=== PATIENT | male | born 1945 | race Caucasian/White ===

== ENCOUNTER 2017-10-15 12:55 | Inpatient (IN) | payer MEDICARE, OTHER ==
[~2017-10-15 12:55] MED LIST: ACETAMINOPHEN 1,000 MG/100 ML BTL IV ONE; BUPIVACAINE 0.75% W/EPI MPF 30ML VIAL IVP ONE; BUPIVACAINE LIPOSOME 266MG/20ML VIAL IV ONE; CEFAZOLIN 2 Gram 2 GM/50 ML BAG IVPB ONE; CELECOXIB 100 MG CAPSULE PO ONE; FAMOTIDINE 20MG TABLET PO ONE; MECLIZINE 25 MG TABLET PO ONE; METOCLOPRAMIDE 10 MG TABLET PO ONE; TRANEXAMIC ACID 1,000 MG/10 ML ML IV ONE; VANCOMYCIN HCL 1 GM VIAL IVPB ONE; VANCOMYCIN HCL 1,000 MG in DEXTROSE 5 % IN WATER 250 ML IVPB ONE
[2017-10-15] MEDS ORDERED: HYDROMORPHONE HCL 2 MG/ML VIAL IM PRN (14:08)
[2017-10-15] MEDS ORDERED: TRAMADOL HCL 50 MG TABLET PO PRN ×2 (14:08)
[2017-10-15] MEDS ORDERED: AL HYDROX/MAG HYDROX 30ML UD PO PRN (14:08)
[2017-10-15] MEDS ORDERED: HYDROCODONE/APAP 7.5/325MG TABLET PO PRN ×2 (14:08)
[2017-10-15] MEDS ORDERED: PROMETHAZINE HCL 12.5 MG in 0.9 % SODIUM CHLORIDE 100ML 50 ML IVPB PRN (14:08)
[2017-10-15] MEDS ORDERED: DEXTROSE 5 % AND 0.9 % NACL 1,000 ML IV PRN (14:08)
[2017-10-15] MEDS ORDERED: BISACODYL 10 MG SUPP RC PRN (14:08)
[2017-10-15] MEDS ORDERED: MAGNESIUM HYDROXIDE 30 ML UDC PO PRN (14:08)
[2017-10-15] MEDS ORDERED: HYDROCODONE/APAP 5/325MG TABLET PO PRN ×2 (14:08)
[2017-10-15] MEDS ORDERED: NALOXONE 0.4 MG/1 ML VIAL IVP PRN (14:08)
[2017-10-15] MEDS ORDERED: ACETAMINOPHEN 325 MG TAB PO PRN (14:08)
[2017-10-15] MEDS ORDERED: ONDANSETRON HCL IV 4 MG/2 ML VIAL IVP PRN (14:08)
[2017-10-15] MEDS ORDERED: DIPHENHYDRAMINE HCL 25 MG CAPSULE PO PRN (14:08)
[2017-10-15] MEDS ORDERED: HYDROMORPHONE HCL 1 MG/ML SYRINGE IM PRN (14:08)
[2017-10-15] MEDS ORDERED: ACETAMINOPHEN W/ CODEINE 300MG/30MG TABLET PO PRN ×2 (14:08)
[2017-10-15] MEDS ORDERED: ZOLPIDEM TARTRATE 5 MG TABLET PO PRN (14:08)
[2017-10-15] MEDS ORDERED: KETOROLAC 30 MG/ML VIAL IVP PRN ×2 (14:08)
[2017-10-15] MEDS ORDERED: MORPHINE SULFATE 5 MG/ML PFS IVP PRN ×4 (14:08)
[2017-10-15] MEDS ORDERED: ACETAMINOPHEN W/ CODEINE 300MG/60MG TABLET PO PRN ×2 (14:08)
[2017-10-15 14:40] LABS: ABO GROUP AB; ANTIBODY SCREEN NEGATIVE (NEGATIVE); RH TYPE NEGATIVE
[2017-10-15] MEDS: METOCLOPRAMIDE HCL 10 MG/2 ML VIAL IVP PRN (20:12)
[2017-10-15] MEDS: DOCUSATE SODIUM 100 MG CAPSULE PO SCH (21:55)
[2017-10-15] MEDS: FERROUS SULFATE 325 MG TAB PO SCH (21:55)
[2017-10-16] MEDS: VANCOMYCIN HCL 1,000 MG in DEXTROSE 5 % IN WATER 250 ML IVPB SCH ×4 (02:54→12:25)
[2017-10-16] MEDS: METOCLOPRAMIDE HCL 10 MG/2 ML VIAL IVP PRN (04:35)
[2017-10-16 06:55] LABS: HEMATOCRIT 41.2 % (42.0-52.0)
[2017-10-16] MEDS ORDERED: BISOPROLOL PO SCH (09:00)
[2017-10-16] MEDS ORDERED: HCTZ PO SCH (09:00)
[2017-10-16] MEDS ORDERED: PATIENT OWN MED: EZETIMIBE 10 MG PO SCH (09:00)
[2017-10-16] MEDS: FERROUS SULFATE 325 MG TAB PO SCH (09:10)
[2017-10-16] MEDS: DOCUSATE SODIUM 100 MG CAPSULE PO SCH (09:10)
[2017-10-16] MEDS ORDERED: RIVAROXABAN 10 MG TABLET PO SCH (10:00)
[2017-10-16] MEDS ORDERED: CELECOXIB 100 MG CAPSULE PO SCH (10:00)
--- NOTE | 2017-10-16 11:51 | Rehab Evaluation ---
Patient Information - Patient Information Diagnosis: left knee arthrosis Ordered Treatment: OT Evaluate and Treat Status: Initial Evaluation Surgery: Yes (left TKA) Date of Surgery: 10/15/17 Past Medical/Surgical Hx: PAST MEDICAL/SURGICAL HISTORY Past Surgical History bilat hip replacement- rt hip removed pins; rt shoulder sx; right hip pinning age 14; colonoscopy. PMH - Respiratory Hx Respiratory Disorders No PMH - Cardiovascular Hx Cardiovascular Disorders Yes Hx Hypertension Yes: med good control Exercise Tolerance Poor Comment: due to knee pain in last 6 months PMH - Neuro Hx Neurological Disorders No PMH - GI Hx Gastrointestinal Disorders Yes PMH - Hx Genitourinary Disorders No PMH - Endocrine Hx Endocrine Disorders No PMH - Musculoskeletal Hx Musculoskeletal Disorders Yes Hx Arthritis Yes: knees & hand lt PMH - Psych Hx Psychiatric Problems No PMH - Hematology/Oncology Hx Hematology/Oncology No Disorders Premorbid Status: Detail (Pt lives alone in a 1 story house with basement, he will be staying on the 1st floor. He has 2 steps, no handrailing at the entrance but he states there is something to hold onto. He has a walk in shower , no grab bars and he has access to a tub bench if needed. He has an elevated toilet with grab bars. He is responsible for all meal prep and laundry, he has a butcher's assistant who comes every 2 weeks. He will have a friend staying with him temporarily after discharge. He has a pulp machine operator, 2 wheeled walker, sock aid and cane.) Precautions: [place], Fall - Time With Patient Total Time Spent With Patient (Min): 45 Treatment Procedures: Detail (OT eval low complexity) Subjective Information - Subjective Information Per Patient Objective Data - Pain Pain Present: Yes (12/15) - Mental Status Patient Orientation: Oriented x3 - Visual Perception Appears within normal limits for therapeutic activities - ROM Not within normal limits (Sven UE AROM WNL with exception of right shoulder flexion which has been limited for years due to premorbid injury.) - Strength/Tone Within normal limits (Sven UE strength WNL within AROM limitations.) - Coordination Appears within normal limits for therapeutic activities - Bed Mobility Independent (Ind with supine to sit and sit to supine.) - Transfers Independent (Ind with sit to stand) - Balance Balance Sitting: Good Balance Standing: Good - Sensation Intact - Gait Detail (Pt ambulating in room with 2 wheeled walker Indly.) - ADL's/IADL's Detail (Pt Ind with toileting, total body dressing using modified dressing techniques.) Therapy Assessment - Therapy Assessment Detail (Pt is safe and Ind with self care activities and functional mobility needed for ADLs.) Problem List - Problem List Occupational Therapy Problem List: Detail (No current OT problems identified.) Goals - Goals Occupational Therapy Goals: No current IP OT goals identified. Prognosis - Prognosis Good Plan - Plan Occupational Therapy Plan: No further IP OT recommended. Thank you for this referral.
--- NOTE | 2017-10-16 12:22 | Rehab Evaluation ---
Patient Information - Patient Information Ordered Treatment: PT Evaluate and Treat Status: Initial Evaluation Surgery: Yes Date of Surgery: 10/15/17 History: Detail Past Med/Kristina Hx Detail: Detail Past Medical/Surgical Hx: PAST MEDICAL/SURGICAL HISTORY Past Surgical History bilat hip replacement- rt hip removed pins; rt shoulder sx; right hip pinning age 14; colonoscopy. PMH - Respiratory Hx Respiratory Disorders No PMH - Cardiovascular Hx Cardiovascular Disorders Yes Hx Hypertension Yes: med good control Exercise Tolerance Poor Comment: due to knee pain in last 6 months PMH - Neuro Hx Neurological Disorders No PMH - GI Hx Gastrointestinal Disorders Yes PMH - Hx Genitourinary Disorders No PMH - Endocrine Hx Endocrine Disorders No PMH - Musculoskeletal Hx Musculoskeletal Disorders Yes Hx Arthritis Yes: knees & hand lt PMH - Psych Hx Psychiatric Problems No PMH - Hematology/Oncology Hx Hematology/Oncology No Disorders Premorbid Status: Detail (Pt lives alone in a 1 story house with basement, he will be staying on the 1st floor. He has 2 steps, no handrailing at the entrance but he states there is something to hold onto. He has a walk in shower , no grab bars and he has access to a tub bench if needed. He has an elevated toilet with grab bars. He is responsible for all meal prep and laundry, he has a naval marine engineer who comes every 2 weeks. He will have a friend staying with him temporarily after discharge. He has a turbine measurements engineer, 2 wheeled walker, sock aid and cane.) Social History: Detail Precautions: [place], Fall - Time With Patient Total Time Spent With Patient (Min): 45 Treatment Procedures: Detail (Evaluation low complexity.) Subjective Information - Subjective Information Per Patient (Pt reports pain is very mild. No trouble with exercise or moving around.) Objective Data - Pain Pain Present: Yes Pain Intensity: 2 Pain Scale Used: Numeric (1 - 10) - Mental Status Patient Orientation: Oriented x3 - Visual Perception Appears within normal limits for therapeutic activities - ROM Other (Hips are WNL within hip precautions he is still under. R knee WFLs, L knee extension is full flexion appears 90degrees approximately.) - Strength/Tone Within normal limits (WNLs with the except of LLE no MMT secondary to surgery.) - Coordination Appears within normal limits for therapeutic activities - Bed Mobility Independent (Pt required no physical assist or verbal cues for bed mobility.) - Transfers Independent (Pt required no physical assist or verbal cues for transfers.) - Balance Balance Sitting: Good Balance Standing: Good ((with walker), I did not test standing balance, but during ambulation with walker, balance was good.) - Sensation Intact - Gait Detail (Independent with 2ww, put new glides on walker back legs.) - ADL's/IADL's Detail - Special Tests No Therapy Assessment - Therapy Assessment Detail (Pt could use one more practice on stairs, then i feel he would be ready for d/c.) Patient Education - Patient Education Teaching Topic: Equipment Use, Exercise/Activity, Precautions Response: Return Demonstration, Verbalize Understanding Teaching Method: Demonstration, Handout (already given at pre-op.) Teaching Recipient: Patient Barriers To Learning: None Problem List - Problem List Physical Therapy Problem List: Detail (minimal need for review of stairs with walker. Pt had no problem with exercise or ambulation on level surfaces. he has done car transfers in past. we did not go out to car secondary to weather.) Goals - Goals Physical Therapy Goals: Independent with all mobility,needs only stair practice. Pt is already independent with HEP, ambulation level surfaces, bed mobility, transfers. Prognosis - Prognosis Good Plan - Plan Physical Therapy Plan: one more session for review of stairs, if posible observe car transfer assist PRN.
[2017-10-16] MEDS ORDERED: ONDANSETRON HCL IV 4 MG/2 ML VIAL IVP ONE (14:49)
[2017-10-16] MEDS ORDERED: FENTANYL PF 100MCG/2ML VIAL IV ONE (14:49)
[2017-10-16] MEDS ORDERED: HYDROMORPHONE HCL 2 MG/ML VIAL IV ONE (14:49)
[2017-10-16] MEDS ORDERED: LIDOCAINE 2% MDV (20MG/ML) 20ML VIAL IV ONE (14:49)
[2017-10-16] MEDS ORDERED: PROPOFOL 10 MG/ML VIAL IV ONE (14:49)
[2017-10-16] MEDS ORDERED: MIDAZOLAM HCL 2MG/2ML VIAL IV ONE (14:49)
[2017-10-16] MEDS ORDERED: *PACU ONLY* KETAMINE HCL 10 MG/ML (20ML) VIAL IV ONE (14:49)
[2017-10-16] MEDS ORDERED: VANCOMYCIN HCL 1 GM VIAL IVPB ONE (15:05)
[2017-10-16] MEDS ORDERED: BUPIVACAINE 0.75% W/EPI MPF 30ML VIAL IVP ONE (15:05)
--- NOTE | 2017-10-16 15:05 | Physical Therapy Tx Note ---
Physical Therapy Tx Note - Treatment Note Tolerated: Good Total Time Spent With Patient: 10 Physical Therapy Tx Note: Detail (Pt was alert in bed awaiting ride home. Pt to be discharged as all goals are met. Pt states no difficulty of ex's and confident in car transfers. Pt states independent with gait with walker and ADL' s, and all ex's for HEP.) Physical Therapy Problem List: Detail (minimal need for review of stairs with walker. Pt had no problem with exercise or ambulation on level surfaces. he has done car transfers in past. we did not go out to car secondary to weather.) Physical Therapy Goals: Independent with all mobility,needs only stair practice. Pt is already independent with HEP, ambulation level surfaces, bed mobility, transfers. Prognosis: Good Physical Therapy Plan: Pt to be discharged at this time due to met all goals of PT and independent with all activities, ex's and transfers.
--- NOTE | 2017-10-17 12:30 | Operative Note ---
DATE OF SURGERY: 10/15/2017 PREOPERATIVE DIAGNOSIS: End-stage left knee arthrosis. POSTOPERATIVE DIAGNOSIS: End-stage left knee arthrosis. OPERATION: Left total knee arthroplasty. Surgeon: Tejas Balderas MD Anesthesia: Spinal. Anesthesia Provider: TRINITY Mendes COMPLICATIONS: None. ESTIMATED BLOOD LOSS: Minimal. TOURNIQUET TIME: 60 minutes OPERATIVE FINDINGS: [id number] knee arthrosis. COMPONENTS PLACED: A 2 g vancomycin cement [employer]hew Journey II Oxinium size 7 femoral component, a size 8 tibial baseplate, an 11 mm thick tibial poly insert, and 35 mm cemented patellar component. Indications: This is a 71-year-old male who has had persistent pain and dysfunction in his knee for several years. Failed nonoperative treatment, scheduled for knee replacement at this point. I explained all risks and benefits in detail for the diagnosis and procedure including but not limited to infection, nerve injury, vessel injury, persistent pain, stiffness, numbness, tingling in the knee, periprosthetic fracture, need for resection arthroplasty if components are infected or loosen, blood clot, and need for further procedures. All of his questions were answered. The course was outlined. He agreed to proceed. PROCEDURE: The patient brought to the OR, placed in the supine position, prepped for surgery. Spinal anesthesia induced. His left lower extremity was prepped and draped in sterile fashion. Left knee prepped with Chloraprep and draped. Intraoperative timeout was performed. The leg was exsanguinated with Esmarch. The knee was then flexed, tourniquet inflated to 250 mmHg pressure. Next, the anterior approach to the knee. Made an incision and the skin and subcutaneous tissue was dissected down. Medial and lateral skin flaps were made. Incised the capsule medially around the medial border of the patella to the tibial tubercle. Incised the vastus medialis in line with the fibers in a mid vastus approach. Everted the patella. Partially resected the retropatellar fat pad, elevated the capsule subperiosteally and medially. Next, a drill hole was made, an intracondylar drill hole at the intracondylar notch. Intramedullary guide genny and the 6-degree cutting block were inserted there after the ACL and meniscus were cut. He had severe erosive arthrosis particularly in the medial compartment. Next, aligned the cutting jig on the distal femoral condyle. It was pinned in +2 mm position and cut the distal femoral condyles. Then, we placed a sizing jig on the distal femoral condyle and sized it to a size 7. Next, through the previously-placed pin holes, we placed a size 7 cutting jig. We dialed the anterior cuts to come out flush without notching. That came out nice, flushed without notching. Next, we cut the remainder of chamfer cuts in the usual fashion. Next, we placed a size 7 cutting jig. We pinned it in place. We then placed a size 7 femoral component. We centered it, pinned it in place, trimmed off the osteophytes around the periphery and then inserted the femoral resection collet and resected out the cruciate bone block using the reamer and box osteotome. Next, attention was turned to the tibia. Placed the extra-alignment jig in the tibia, seated the spikes in the tubercular groove 2 fingerbreadths distally for a 7 mm cut off the higher lateral plateau. We pinned the cutting jig provisionally in place. We then used a drop genny to recheck the alignment of the tibial cutting jig. Aligned on the tibial anatomic axis, cross-pinned and completed fixation, and then cut the tibia. Next, we removed osteophytes of the posterior femoral condyles, checked the flexion/extension gaps. Sized it to a size 11 mm basically poly insert. This allowed for 2-3 mm varus/valgus laxity in flexion and extension, and overall alignment cuts and extension were valgus orientation with alignment genny centered on the hip joint and ankle joint. Next, we took the knee in flexion and sized the tibial baseplate to a size 8 and replaced all trial components. Again set the rotation tibial baseplate in extension using the alignment genny centered on hip joint and ankle joint. Marked electrocautery rockwell on the anterior tibial cortex on the laser rockwell of the tibial baseplate. Attention was turned to the patella and measured the patella to be 27 mm. Set the cutting jig at 18 mm to allow for a 9 mm thick insert. Cut the patella using the cutting jig. We chamfered off the lateral patellar facet, measured it to be right on 18. We sized the patella to be 35 mm. We medialized the patella as much as possible, drilled 3 peg holes and placed the trial patella component and then mixed cement. The patella tracked nicely handsfree. Full extension and flexion to 130-140 degrees, again symmetric flexion/extension gaps. Next, took the knee in flexion, seated the tibial baseplate off the previously placed electrocautery rockwell, pinned it in place and reamed out and keel punched the keel hole. Placed a bone plug in the femoral canal hole. Placed a drill in the tibial hole. Next, we injected the deep capsule, medial and lateral periosteum, vastus medialis with 0.5% Marcaine with epi, 2 g of tranexamic acid, and Exparel mixture. We then precut and packed down the tibial component and then the femoral component. Removed excess cement and held the knee in extension with a trial tibial poly liner and clamped down on the patellar component and held until cement hardened and removing excess cement. Once the cement hardened, we took the knee in flexion with bone, hook, and sponge, distracted the knee. We removed the trial tibial component, irrigated copiously. I removed any excess cement and then inserted the real tibial poly insert, verified it was interlocked medially and laterally, which it was. Final range of motion revealed the same. Next, we irrigated the knee copiously. Repaired the capsule in flexion using #2 Quill suture again, closed the skin deep with 2-0 Vicryl, and then thomas. Injected the wound with 0.5% Marcaine with epi. Sterile dressing applied. Patient tolerated the procedure well. No intraoperative complications. Sponge, needle, and blade counts correct. Recovery room stable, neurovascular intact. Can be discharged to the floor and likely discharge home tomorrow. ABELINO
== END 2017-10-16 14:50 | disposition home health service (06) | DRG 470 ==
LOC: MEDSURG 12:55
PROVIDERS: ADMIT Orthopaedic Surgery; ATTEND Orthopaedic Surgery
PROC: 0SRD069 Replacement of Left Knee Joint with Oxidized Zirconium on Polyethylene Synthetic Substitute, Cemented, Open Approach (ICD-10-PCS; principal; 2017-10-15 15:00)
DX: M17.12 Unilateral primary osteoarthritis, left knee (principal); E78.00 Pure hypercholesterolemia, unspecified; I10 Essential (primary) hypertension
CPT/HCPCS: 85014; 85018; 86850; 86900; 86901; 94760; 97165; C1776; J2405; J2765; J3490; J7042; J7060